=== PATIENT | male | born 1990 | race Caucasian/White ===

== ENCOUNTER 2017-03-20 08:53 | Emergency (ER) | payer SELFPAY ==
[~2017-03-20] VITALS: Ht 190.5 cm; Wt 99.4 kg
[~2017-03-20 08:53] MED LIST: AMOXICILLIN500 MG PO; BACTRIM DS1 TAB PO; CEPHALEXIN500 MG PO; MUCINEX1200 MG OR; NO MEDS; PERCOCET 5/325M1 TAB OR; ULTRAM50 M1 PO; VENTOLIN HFA IN; VIBRAMYCIN100 MG OR
[2017-03-20] MEDS ORDERED: KEFLEX500 MG PO (09:30)
[2017-03-20] MEDS ORDERED: STROMECTOL3 MG PO (09:30)
[2017-03-20 09:33] VITALS: BP 136/92
== END 2017-03-20 09:40 | disposition home or self-care (01) | DRG 607 ==
LOC: ED 08:53
DX: R21 Rash and other nonspecific skin eruption (principal)

== ENCOUNTER 2017-06-20 07:45 | Emergency (ER) | payer OTHER ==
[~2017-06-20] VITALS: Ht 190.5 cm; Wt 100.0 kg
[~2017-06-20 07:45] MED LIST changes: +KEFLEX500 MG PO; +STROMECTOL3 MG PO
[2017-06-20] MEDS ORDERED: ZITHROMAX250 MG PO (08:34)
[2017-06-20] MEDS ORDERED: AFRIN 12 HOUR0.05 % (08:34)
[2017-06-20] MEDS ORDERED: TESSALON PER100 MG PO (08:34)
[2017-06-20 08:44] VITALS: BP 133/68
== END 2017-06-20 08:47 | disposition home or self-care (01) | DRG 866 ==
LOC: ED 07:45
DX: B34.9 Viral infection, unspecified (principal); R09.81 Nasal congestion; J40 Bronchitis, not specified as acute or chronic; R05 Cough; R50.9 Fever, unspecified

== ENCOUNTER 2020-01-20 | Emergency (ER) | payer SELFPAY ==
[~2020-01-20] MED LIST changes: +AFRIN 12 HOUR0.05 %; +TESSALON PER100 MG PO; +ZITHROMAX250 MG PO
[2020-01-20 15:29] LABS: HEMATOCRIT 45.1 % (39.0-50.0); HEMOGLOBIN 15.6 g/dl (14.0-18.0); IMMATURE GRANULOCYTES 0.1 % (0.0-5.0); MEAN CORPUSCULAR HGB 33.9 pG CALC (26.0-32.0); MEAN CORPUSCULAR HGB CONC 34.6 g/dL CAL (32.0-36.0); NEUT# 3.66 thou/uL (1.82-7.42); RED BLOOD COUNT 4.6 mill/uL (4.70-6.10); RED CELL DISTRI WIDTH 12.8 % (11.5-15.5)
[2020-01-20 15:31] LABS: URINE BILIRUBIN - DIPSTICK NEGATIVE (NEGATIVE); URINE BLOOD DIPSTICK TRACE-INTACT (NEGATIVE); URINE COLOR YELLOW; URINE GLUCOSE - DIPSTICK NEGATIVE (NEGATIVE); URINE KETONE NEGATIVE (NEGATIVE); URINE LEUK ESTERASE NEGATIVE (NEGATIVE); URINE NITRITE - DIPSTICK NEGATIVE (Negative); URINE PROTEIN - DIPSTICK NEGATIVE (NEG-TRACE); URINE SPECIFIC GRAVITY 1.025; URINE UROBILINOGEN - DIPSTICK 0.2 E.U./dL (0.2)
[2020-01-20 15:52] LABS: ALBUMIN 4.5 g/dL (3.2-5.0); ALKALINE PHOSPHATASE 81 u/l (38-126); ANION GAP 13 (6-22 (CALC)); BILIRUBIN, TOTAL 0.5 mg/dL (0.0-1.4); BUN 16 mg/dL (9-20); BUN/CREATININE RATIO 14 (12-20 (CALC)); CARBON DIOXIDE 25 mmol/l (22-30); CHLORIDE 107 mmol/l (95-108); CREATININE 1.1 mg/dL (0.7-1.3); GFR > 60 ML/MIN (>=60 (CALC)); GFR FOR AFR.AMER. > 60 ML/MIN (>=60 (CALC)); LIPASE 166 u/l (23-300); SGOT/AST 48 u/l (17-59); SODIUM 140 mmol/l (137-146); TOTAL PROTEIN 7.4 g/dL (6.3-8.2)
== END 2020-01-20 17:35 | disposition home or self-care (01) | DRG 392 ==
DX: R10.11 Right upper quadrant pain (principal); F10.20 Alcohol dependence, uncomplicated; B19.20 Unspecified viral hepatitis C without hepatic coma; F17.210 Nicotine dependence, cigarettes, uncomplicated
CPT/HCPCS: Q9967

== ENCOUNTER 2020-11-23 10:33 | Emergency (ER) | payer SELFPAY ==
[~2020-11-23] VITALS: Ht 190.5 cm; Wt 100.0 kg
[2020-11-23 13:04] LABS: URINE BILIRUBIN - DIPSTICK NEGATIVE (NEGATIVE); URINE BLOOD DIPSTICK TRACE-INTACT (NEGATIVE); URINE CLARITY CLEAR; URINE COLOR YELLOW; URINE GLUCOSE - DIPSTICK NEGATIVE (NEGATIVE); URINE KETONE NEGATIVE (NEGATIVE); URINE LEUK ESTERASE NEGATIVE (Negative); URINE NITRITE - DIPSTICK NEGATIVE (Negative); URINE PH 7.5 (4.5-8.0); URINE PROTEIN - DIPSTICK NEGATIVE (NEG-TRACE); URINE SPECIFIC GRAVITY 1.015; URINE UROBILINOGEN - DIPSTICK 0.2 E.U./dL (0.2)
[2020-11-23 13:14] LABS: HEMATOCRIT 44.9 % (39.0-50.0); HEMOGLOBIN 15.2 g/dl (14.0-18.0); IMMATURE GRANULOCYTES 0.2 % (0.0-5.0); MEAN CELL VOLUME 95.1 fL CALC (80.0-100.0); MEAN CORPUSCULAR HGB 32.2 pG CALC (26.0-32.0); MEAN CORPUSCULAR HGB CONC 33.9 g/dL CAL (32.0-36.0); NEUT# 3.32 thou/uL (1.82-7.42); RED BLOOD COUNT 4.72 mill/uL (4.70-6.10); RED CELL DISTRI WIDTH 11.8 % (11.5-15.5)
[2020-11-23 13:20] LABS: ALBUMIN 4.3 g/dL (3.2-5.0); ALKALINE PHOSPHATASE 70 u/l (38-126); ANION GAP 10 (6-22 (CALC)); BILIRUBIN, TOTAL 0.6 mg/dL (0.0-1.4); BUN 14 mg/dL (9-20); BUN/CREATININE RATIO 12 (12-20 (CALC)); CARBON DIOXIDE 28 mmol/l (22-30); CHLORIDE 104 mmol/l (95-108); CREATININE 1.2 mg/dL (0.7-1.3); GFR > 60 ML/MIN (>=60 (CALC)); GFR FOR AFR.AMER. > 60 ML/MIN (>=60 (CALC)); LIPASE 114 u/l (23-300); POTASSIUM 4.5 mmol/l (3.5-5.1); SGOT/AST 34 u/l (17-59); SODIUM 137 mmol/l (137-146)
[2020-11-23 14:45] VITALS: BP 127/78
== END 2020-11-23 14:50 | disposition home or self-care (01) | DRG 392 ==
LOC: ED 10:33
DX: R10.31 Right lower quadrant pain (principal); B19.20 Unspecified viral hepatitis C without hepatic coma; F17.200 Nicotine dependence, unspecified, uncomplicated; Z87.442 Personal history of urinary calculi
CPT/HCPCS: Q9967

== ENCOUNTER 2021-07-05 11:51 | Emergency (ER) | payer SELFPAY ==
[~2021-07-05] VITALS: Ht 190.5 cm; Wt 90.0 kg
[2021-07-05] MEDS ORDERED: FLEXERIL5 M1 PO (15:02)
[2021-07-05] MEDS ORDERED: IBUPROFEN600 MG PO (15:02)
[2021-07-05 15:50] VITALS: BP 149/79
== END 2021-07-05 15:50 | disposition home or self-care (01) | DRG 552 ==
LOC: ED 11:51
DX: M54.2 Cervicalgia (principal); M25.511 Pain in right shoulder; B19.20 Unspecified viral hepatitis C without hepatic coma; F17.200 Nicotine dependence, unspecified, uncomplicated; W01.0XXA Fall on same level from slipping, tripping and stumbling without subsequent striking against object, initial encounter; Y92.89 Other specified places as the place of occurrence of the external cause; Y99.0 Civilian activity done for income or pay

== ENCOUNTER 2021-08-01 22:56 | Emergency (ER) | payer SELFPAY ==
[~2021-08-01] VITALS: Ht 182.9 cm; Wt 100.0 kg
[~2021-08-01 22:56] MED LIST changes: +FLEXERIL5 M1 PO; +IBUPROFEN600 MG PO
[2021-08-02 00:51] LABS: HEMATOCRIT 45.5 % (39.0-50.0); HEMOGLOBIN 15.7 g/dl (14.0-18.0); IMMATURE GRANULOCYTES 0.3 % (0.0-5.0); MEAN CELL VOLUME 99.8 fL CALC (80.0-100.0); MEAN CORPUSCULAR HGB 34.4 pG CALC (26.0-32.0); MEAN CORPUSCULAR HGB CONC 34.5 g/dL CAL (32.0-36.0); NEUT# 4.68 thou/uL (1.82-7.42); RED BLOOD COUNT 4.56 mill/uL (4.70-6.10); RED CELL DISTRI WIDTH 12.3 % (11.5-15.5)
[2021-08-02 01:05] LABS: ALBUMIN 4.5 g/dL (3.2-5.0); ALKALINE PHOSPHATASE 91 u/l (38-126); ANION GAP 16 (6-22 (CALC)); BILIRUBIN, TOTAL 0.6 mg/dL (0.0-1.4); BUN 13 mg/dL (9-20); BUN/CREATININE RATIO 10 (12-20 (CALC)); CARBON DIOXIDE 23 mmol/l (22-30); CHLORIDE 106 mmol/l (95-108); CREATININE 1.4 mg/dL (0.7-1.3); GFR 58 ML/MIN (>=60 (CALC)); GFR FOR AFR.AMER. > 60 ML/MIN (>=60 (CALC)); POTASSIUM 3.5 mmol/l (3.5-5.1); SGOT/AST 80 u/l (17-59); SODIUM 141 mmol/l (137-146); TOTAL PROTEIN 7.3 g/dL (6.3-8.2)
[2021-08-02 01:07] LABS: ACT PARTIAL THROMBO TIME 20.6 SECONDS (20.0-32.5); INTERNATIONAL NORMALIZED RATIO 0.9 RATIO (0.7-1.3); PROTHROMBIN TIME 9.9 SECONDS (9.0-12.5)
[2021-08-02 02:31] VITALS: BP 127/84
== END 2021-08-02 02:35 | DRG 159 ==
LOC: ED 22:56
PROVIDERS: Emergency Medicine
DX: S02.609A Fracture of mandible, unspecified, initial encounter for closed fracture (principal); B19.20 Unspecified viral hepatitis C without hepatic coma; F17.200 Nicotine dependence, unspecified, uncomplicated; Y09 Assault by unspecified means; Z20.822 Contact with and (suspected) exposure to COVID-19
CPT/HCPCS: J2060

== ENCOUNTER 2021-08-07 17:22 | Emergency (ER) | payer SELFPAY ==
[~2021-08-07] VITALS: Ht 182.9 cm; Wt 86.0 kg
[2021-08-07 17:39] LABS: HEMATOCRIT 43.5 % (39.0-50.0); HEMOGLOBIN 14.9 g/dl (14.0-18.0); MEAN CELL VOLUME 99.8 fL CALC (80.0-100.0); MEAN CORPUSCULAR HGB 34.2 pG CALC (26.0-32.0); MEAN CORPUSCULAR HGB CONC 34.3 g/dL CAL (32.0-36.0); NEUT# 1.91 thou/uL (1.82-7.42); RED BLOOD COUNT 4.36 mill/uL (4.70-6.10); RED CELL DISTRI WIDTH 11.5 % (11.5-15.5)
[2021-08-07] MEDS ORDERED: HYDROCODONE BITA1 M1 PO (17:44)
[2021-08-07 17:52] LABS: ALBUMIN 4.4 g/dL (3.2-5.0); ALKALINE PHOSPHATASE 74 u/l (38-126); BILIRUBIN, TOTAL 0.8 mg/dL (0.0-1.4); BUN 23 mg/dL (9-20); BUN/CREATININE RATIO 20 (12-20 (CALC)); CHLORIDE 102 mmol/l (95-108); CREATININE 1.1 mg/dL (0.7-1.3); ETHYL ALCOHOL 0 mg/dl (0-30); GFR > 60 ML/MIN (>=60 (CALC)); GFR FOR AFR.AMER. > 60 ML/MIN (>=60 (CALC)); POTASSIUM 4.1 mmol/l (3.5-5.1); SGOT/AST 41 u/l (17-59); SODIUM 140 mmol/l (137-146); TOTAL PROTEIN 7.9 g/dL (6.3-8.2)
[2021-08-07 17:53] LABS: ANION GAP 13 (6-22 (CALC)); CARBON DIOXIDE 29 mmol/l (22-30)
[2021-08-07 17:58] LABS: URINE BILIRUBIN - DIPSTICK NEGATIVE (NEGATIVE); URINE BLOOD DIPSTICK NEGATIVE (NEGATIVE); URINE COLOR YELLOW; URINE GLUCOSE - DIPSTICK NEGATIVE (NEGATIVE); URINE KETONE NEGATIVE (NEGATIVE); URINE LEUK ESTERASE NEGATIVE (NEGATIVE); URINE PROTEIN - DIPSTICK NEGATIVE (NEG-TRACE)
[2021-08-07 17:59] LABS: URINE NITRITE - DIPSTICK NEGATIVE (Negative)
[2021-08-07 18:13] LABS: ACT PARTIAL THROMBO TIME 24.5 SECONDS (20.0-32.5); PROTHROMBIN TIME 10.4 SECONDS (9.0-12.5)
[2021-08-07 19:00] VITALS: BP 130/85
[2021-08-07 19:27] LABS: SGOT/AST 49 u/l (17-59)
== END 2021-08-07 19:38 | disposition left against medical advice (07) | DRG 918 ==
LOC: ED 17:22
PROVIDERS: Family Medicine
DX: T40.2X1A Poisoning by other opioids, accidental (unintentional), initial encounter (principal); S02.609D Fracture of mandible, unspecified, subsequent encounter for fracture with routine healing; B19.20 Unspecified viral hepatitis C without hepatic coma; F17.200 Nicotine dependence, unspecified, uncomplicated; X58.XXXD Exposure to other specified factors, subsequent encounter; Z87.442 Personal history of urinary calculi; Z91.19 Patient's noncompliance with other medical treatment and regimen

== ENCOUNTER 2021-10-25 15:19 | Emergency (ER) | payer OTHER ==
[~2021-10-25] VITALS: Ht 182.9 cm; Wt 100.0 kg
[~2021-10-25 15:19] MED LIST changes: +HYDROCODONE BITA1 M1 PO
[2021-10-25] MEDS ORDERED: CEPHALEXIN500 M1 PO (16:54)
[2021-10-25 16:56] VITALS: BP 144/86
== END 2021-10-25 16:55 | disposition home or self-care (01) | DRG 159 ==
LOC: ED 15:19
PROC: 0HQ1XZZ Repair Face Skin, External Approach (ICD-10-PCS; principal; 2021-10-25)
PROC: 0CQ1XZZ Repair Lower Lip, External Approach (ICD-10-PCS; 2021-10-25)
DX: S01.511A Laceration without foreign body of lip, initial encounter (principal); S01.81XA Laceration without foreign body of other part of head, initial encounter; B19.20 Unspecified viral hepatitis C without hepatic coma; F17.210 Nicotine dependence, cigarettes, uncomplicated; Y35.93XA Legal intervention, means unspecified, suspect injured, initial encounter; Y92.149 Unspecified place in prison as the place of occurrence of the external cause

== ENCOUNTER 2021-12-10 05:08 | Emergency (ER) | payer SELFPAY ==
[~2021-12-10] VITALS: Ht 182.9 cm; Wt 100.0 kg
[~2021-12-10 05:08] MED LIST changes: +CEPHALEXIN500 M1 PO
[2021-12-10 06:04] LABS: HEMATOCRIT 45.7 % (39.0-50.0); HEMOGLOBIN 16.1 g/dl (14.0-18.0); IMMATURE GRANULOCYTES 0.2 % (0.0-5.0); MEAN CELL VOLUME 100.4 fL CALC (80.0-100.0); MEAN CORPUSCULAR HGB 35.4 pG CALC (26.0-32.0); MEAN CORPUSCULAR HGB CONC 35.2 g/dL CAL (32.0-36.0); NEUT# 4.03 thou/uL (1.82-7.42); RED BLOOD COUNT 4.55 mill/uL (4.70-6.10); RED CELL DISTRI WIDTH 12.4 % (11.5-15.5)
[2021-12-10 06:05] LABS: URINE BILIRUBIN - DIPSTICK NEGATIVE (NEGATIVE); URINE BLOOD DIPSTICK NEGATIVE (NEGATIVE); URINE COLOR YELLOW; URINE GLUCOSE - DIPSTICK NEGATIVE (NEGATIVE); URINE KETONE NEGATIVE (NEGATIVE); URINE LEUK ESTERASE NEGATIVE (NEGATIVE); URINE NITRITE - DIPSTICK NEGATIVE (Negative); URINE PROTEIN - DIPSTICK NEGATIVE (NEG-TRACE); URINE SPECIFIC GRAVITY 1.015; URINE UROBILINOGEN - DIPSTICK 0.2 E.U./dL (0.2)
[2021-12-10 06:08] LABS: ALBUMIN 4.1 g/dL (3.2-5.0); AMYLASE 61 u/l (30-110); ANION GAP 14 (6-22 (CALC)); BILIRUBIN, TOTAL 0.7 mg/dL (0.0-1.4); BUN 13 mg/dL (9-20); BUN/CREATININE RATIO 11 (12-20 (CALC)); CARBON DIOXIDE 24 mmol/l (22-30); CHLORIDE 102 mmol/l (95-108); CREATININE 1.2 mg/dL (0.7-1.3); GFR > 60 ML/MIN (>=60 (CALC)); GFR FOR AFR.AMER. > 60 ML/MIN (>=60 (CALC)); LIPASE 109 u/l (23-300); POTASSIUM 4.5 mmol/l (3.5-5.1); SODIUM 136 mmol/l (137-146); TOTAL PROTEIN 7.1 g/dL (6.3-8.2)
[2021-12-10 06:10] LABS: ALKALINE PHOSPHATASE 114 u/l (38-126); SGOT/AST 117 u/l (17-59)
[2021-12-10 11:34] VITALS: BP 132/87
== END 2021-12-10 11:34 | disposition home or self-care (01) | DRG 443 ==
LOC: ED 05:08
PROVIDERS: Family Medicine
DX: K70.0 Alcoholic fatty liver (principal); F10.20 Alcohol dependence, uncomplicated; B19.20 Unspecified viral hepatitis C without hepatic coma; F17.200 Nicotine dependence, unspecified, uncomplicated; Z87.442 Personal history of urinary calculi
CPT/HCPCS: Q9967